=== PATIENT | female | born 1945 | race Hispanic/Latino ===

== ENCOUNTER → 2025-01-31 | Day surgery (SDC) | payer MEDICARE ==
[~2025-01-31] MED LIST: ACETAMINOPHEN 1000 MG/100 ML IV PRN; ASPIRIN 325 MG TAB PO SCH; ASPIRIN81 MG PO; BUPIVACAINE 0.25% 30ML SDV ONE; BUPIVACAINE/EPI 0.5% 30ML SDV-MPF INJ ONE; CELECOXIB 100 MG CAP PO SCH; COREG12.5 MG PO; DEXAMETHASONE SOD PHOS INJ 4 MG/ML SDV ONE; DIPHENHYDRAMINE HCL INJ 50 MG/ML VIAL IV PRN; DOCUSATE SODIUM 100 MG CAP PO PRN; EPHEDRINE SULFATE INJ 50 MG/ML VIAL ONE; FAMOTIDINE 20 MG/2 ML VIAL IV ONE; FENTANYL CITRATE/PF 100MCG/2 ML INJ ONE; HYDROCODONE/APAP 5MG-325MG TAB PO PRN; HYDROCODONE/APAP 7.5MG-325MG 1 EA TAB ONE; HYDROCODONE/APAP 7.5MG-325MG 1 EA TAB PO PRN; LABETALOL HCL 20 ML ONE; LIDOCAINE HCL 2% LOCAL INJ 5 ML SDV VIAL INJ ONE; MULTI-VITAMIN1 EACH PO; OMEPRAZOLE40 MG PO; ONDANSETRON HCL INJ 2MG/ML 2ML 2 MG/ML VIAL IV PRN; ONDANSETRON HCL INJ 2MG/ML 2ML 2 MG/ML VIAL ONE; PHENYLEPHRINE HCL 1% 10 MG/ML VIAL ONE; PROPOFOL IV EMULSION 10 MG/ML 20 ML VIAL ONE; ROPIVACAINE/EPI/CLONIDINE/KET 50 ML SYRINGE INJ ONE; SEVOFLURANE INHAL SOLN 250 ML PEN BTL ONE; SIMVASTATIN20 MG PO; SODIUM CHLORIDE 0.9% 100 ML ONE; SODIUM CHLORIDE 0.9% 1000ML 1,000 ML IV SCH; SUCCINYLCHOLINE CHLORIDE 20 MG/ML 10ML VIAL ONE; TRANEXAMIC ACID 1,000 MG/10 ML ML ONE; TRICOR145 MG PO; ZESTRIL10 MG PO
[2025-01-31] MEDS: CEFAZOLIN SODIUM 2 GM ONE (07:17)
[2025-01-31] MEDS: LACTATED RINGER'S 1,000 ML ONE (07:18)
[2025-01-31] MEDS: DEXAMETHASONE SOD PHOS 10 MG/1 ML VIAL ONE (07:18)
[2025-01-31] MEDS: CELECOXIB 200 MG CAP ONE (07:18)
[2025-01-31] MEDS: GABAPENTIN 300 MG CAP ONE (07:18)
[2025-01-31] MEDS: HYDROCODONE/APAP 7.5MG-325MG 1 EA TAB PO ONE (11:58)
[2025-01-31 13:00] VITALS: BP 172/82; PULSE 63; RESP 15; O2SAT 97
== END | disposition home health service (06) ==
LOC: OR 06:18
PROVIDERS: ATTEND Specialist
DX: M16.12 Unilateral primary osteoarthritis, left hip (principal); I10 Essential (primary) hypertension; E78.5 Hyperlipidemia, unspecified; K21.9 Gastro-esophageal reflux disease without esophagitis; Z01.812 Encounter for preprocedural laboratory examination; Z79.899 Other long term (current) drug therapy
CPT/HCPCS: 27130; 72170; 86850; 86900; 97110; 97116; 97161; 97530; C1713 ×2; C1776 ×3; J0330; J1100 ×2; J2003; J2371; J2405; J2704; J3010; J3490; J7050; J7121